=== PATIENT | male | born 1955 | race Caucasian/White ===

== ENCOUNTER 2023-05-04 12:29 | Emergency (ER) | payer OTHER ==
[~2023-05-04] VITALS: Ht 167.6 cm; Wt 72.6 kg
[2023-05-04 13:25] LABS: HEMATOCRIT 44.1 % (39.0-48.0); HEMOGLOBIN 15.7 g/dL (13-16.00); MEAN CELL VOLUME 90.8 fL (80.0-100.00); MEAN CORPUSCULAR HEMOGLOBIN 32.4 pg (27.00-32.0); MEAN CORPUSCULAR HGB CONC 35.7 g/dl (32.0-36.0); PLATELET COUNT 200 K/uL (150-450); RED BLOOD COUNT 4.85 M/uL (4.00-6.00); RED CELL DISTRIBUTION WIDTH 12.3 % (11.5-14.5)
[2023-05-04 13:56] LABS: ALBUMIN 3.5 gm/dL (3.4-5.0); BILIRUBIN TOTAL 0.74 mg/dL (0.3-1.2); CREATININE SERUM 1.04 mg/dL (0.70-1.30); GFR 71.02; POTASSIUM 3.51 mEq/L (3.5-5.1); TOTAL PROTEIN 7.5 gm/dL (6.4-8.2)
== END 2023-05-04 17:25 | disposition home or self-care (01) ==
LOC: ER 12:29
PROVIDERS: General Practice
DX: R19.7 Diarrhea, unspecified (principal)
CPT/HCPCS: 36415; 96365; 96366; 99283; J3490